=== PATIENT | male | born 1950 | race Caucasian/White ===

== ENCOUNTER 2022-10-09 04:31 | Inpatient (IN) ==
[2022-10-09] MEDS ORDERED: DILTIAZEM 25 MG/5 ML VIAL IV ONE (05:00)
[2022-10-09] MEDS ORDERED: ALBUTEROL/IPRATROPIUM 3 ML NEB RESP TX STA (05:01)
[2022-10-09] MEDS ORDERED: DILTIAZEM 50 MG/10 ML VIAL IV STA (05:01)
[2022-10-09] MEDS ORDERED: ONDANSETRON 4 MG/2 ML VIAL IV STA (05:01)
[2022-10-09] MEDS ORDERED: methylPREDNISolone SOD SUC 125 MG/2 ML VIAL IV STA (05:01)
[2022-10-09 05:21] LABS: Arterial Base Excess iSTAT -3 MMOL/L (-2.5-2.5); Arterial Bicarbonate iSTAT 21.6 MMOL/L (20-26); Arterial O2 Saturation iSTAT 83 % (95-100); Arterial PCO2 iSTAT 35 MM HG (35-48); Arterial PO2 iSTAT 47 MM HG (80-95); Arterial Total CO2 iSTAT 23 MMO/L (23-27)
[2022-10-09 05:41] LABS: Basophils # 0.1 10*3/uL (0.0-0.2); Basophils % 0.3 % (0.0-0.8); Eosinophils % 0.1 % (0.00-10.9); Hemoglobin 12.9 GM/DL (14.0-18.0); Immature Granulocytes % 0.6 %; Immature Granulocytes Absolute 0.09 #; Lymphocytes # 0.4 10*3/uL (1.4-4.0); Lymphocytes % 2.8 % (21.2-54.2); Mean Corpuscular HGB Conc 31.5 GM/DL (32-36); Mean Corpuscular Volume 92.6 FL (87-102); Monocytes % 6.4 % (1.7-12.7); NRBC # 0.02 10*3/uL; Neutrophils % 89.8 % (38.7-73.9); Platelet Count 236 T/CUMM (130-400); Red Blood Count 4.43 MC/CUMM (3.8-5.5); Red Cell Distribution Width 18.6 % (9.3-17.3); White Blood Count 15.51 T/CUMM (4-12)
[2022-10-09] MEDS ORDERED: PIPERACILLIN/TAZOBACTAM 3,375 MG in SODIUM CHLORIDE 0.9% 100 ML IV STA (05:46)
[2022-10-09 05:50] LABS: INR 2.5; PT Patient Result 25.7 SECS (10.1-12.1)
[2022-10-09 05:59] LABS: Albumin 3.3 G/DL (3.4-5.0); Bilirubin,Total 1.2 MG/DL (0.20-1.00); Calcium 8.6 MG/DL (8.5-10.1); Osmolality,Calculated 289.8 MOS/KG (273-304); Potassium 4.8 MMOL/L (3.5-5.1)
[2022-10-09] MEDS ORDERED: ACETAMINOPHEN 325 MG TABLET PO PRN (06:00)
[2022-10-09] MEDS ORDERED: DEXTROSE 50% 25 GM/50 ML VIAL IV PRN (06:00)
[2022-10-09] MEDS ORDERED: GLUCAGON 1 MG VIAL IM PRN (06:00)
[2022-10-09 06:12] LABS: Band Neutrophils 6 % (0-10); Lymphocytes 2 % (20-55); Total Cells Counted 100
[2022-10-09 06:13] LABS: Anisocytosis 1+; Microcytosis 1+; Ovalocytes Slight
[2022-10-09 06:14] LABS: Arterial Base Excess iSTAT -2 MMOL/L (-2.5-2.5); Arterial Bicarbonate iSTAT 21.7 MMOL/L (20-26); Arterial O2 Saturation iSTAT 96 % (95-100); Arterial PCO2 iSTAT 35 MM HG (35-48); Arterial PO2 iSTAT 81 MM HG (80-95); Arterial Total CO2 iSTAT 23 MMO/L (23-27); Arterial pH iSTAT 7.406 (7.35-7.45)
[2022-10-09 06:14] LABS: Platelet Estimate Normal
[2022-10-09] MEDS ORDERED: DEXTROSE 10% 250 ML BAG IV PRN (06:30)
[2022-10-09] MEDS: ALBUTEROL/IPRATROPIUM 3 ML NEB RESP TX SCH ×3 (07:15→22:16)
[2022-10-09] MEDS: INSULIN REGULAR 100 UNIT/ML SUBCUT SCH ×4 (08:17→22:34)
[2022-10-09] MEDS: AZITHROMYCIN INJ 500 MG in SODIUM CHLORIDE 0.9% 250 ML IV SCH (08:29)
[2022-10-09] MEDS ORDERED: ALBUTEROL 1.25 MG/3 ML NEB RESP TX ONE (11:06)
[2022-10-09] MEDS: PANTOPRAZOLE 40 MG TABLET PO SCH (11:12)
[2022-10-09] MEDS ORDERED: ALBUTEROL 2.5 MG/3 ML NEB RESP TX PRN (15:00)
[2022-10-09] MEDS: FUROSEMIDE 40 MG/4 ML VIAL IV SCH ×2 (16:34→16:48)
[2022-10-09] MEDS: methylPREDNISolone SOD SUC 40 MG/1 ML VIAL IV SCH (22:30)
[2022-10-09] MEDS: ASCORBIC ACID 500 MG TABLET PO SCH (22:34)
[2022-10-09] MEDS: SPIRONOLACTONE 25 MG TABLET PO SCH (22:34)
[2022-10-09] MEDS: FLECAINIDE 50 MG TABLET PO SCH (22:35)
[2022-10-10] MEDS: ALBUTEROL/IPRATROPIUM 3 ML NEB RESP TX SCH ×4 (01:16→21:06)
[2022-10-10 04:34] LABS: Basophils % 0.1 % (0.0-0.8); Hematocrit 40.8 VOL% (42.0-52.0); Hemoglobin 13.1 GM/DL (14.0-18.0); Immature Granulocytes % 0.6 %; Immature Granulocytes Absolute 0.07 #; Lymphocytes # 0.6 10*3/uL (1.4-4.0); Lymphocytes % 4.6 % (21.2-54.2); Mean Corpuscular HGB Conc 32.1 GM/DL (32-36); Mean Corpuscular Volume 93.6 FL (87-102); Mean Platelet Volume 11.3 FL (9.6-12.0); Monocytes # 0.5 10*3/uL (0.11-0.8); Monocytes % 3.9 % (1.7-12.7); NRBC # 0.02 10*3/uL; Neutrophils % 90.8 % (38.7-73.9); Platelet Count 219 T/CUMM (130-400); Red Blood Count 4.36 MC/CUMM (3.8-5.5); Red Cell Distribution Width 18.7 % (9.3-17.3); White Blood Count 12.25 T/CUMM (4-12)
[2022-10-10 05:00] LABS: Lymphocytes 3 % (20-55); Platelet Estimate Adequate; Total Cells Counted 100
[2022-10-10 05:01] LABS: Ovalocytes Slight
[2022-10-10 05:02] LABS: Calcium 9.1 MG/DL (8.5-10.1); Osmolality,Calculated 293.4 MOS/KG (273-304); Potassium 4.9 MMOL/L (3.5-5.1)
[2022-10-10 05:06] LABS: Bilirubin,Total 0.8 MG/DL (0.20-1.00); Calcium 9.2 MG/DL (8.5-10.1); Osmolality,Calculated 292.4 MOS/KG (273-304); Potassium 4.8 MMOL/L (3.5-5.1); Total Protein 7.3 G/DL (6.4-8.2)
[2022-10-10] MEDS: cefTRIAXone 1,000 MG in SODIUM CHLORIDE 0.9% 100 ML IV SCH (05:09)
[2022-10-10] MEDS: methylPREDNISolone SOD SUC 40 MG/1 ML VIAL IV SCH ×3 (05:53→21:47)
[2022-10-10] MEDS: AZITHROMYCIN INJ 500 MG in SODIUM CHLORIDE 0.9% 250 ML IV SCH (06:34)
[2022-10-10] MEDS: ATORVASTATIN 80 MG TABLET PO SCH (09:24)
[2022-10-10] MEDS: SPIRONOLACTONE 25 MG TABLET PO SCH ×2 (09:24→21:45)
[2022-10-10] MEDS: DAPAGLIFLOZIN 10 MG TABLET PO SCH (09:24)
[2022-10-10] MEDS: FLECAINIDE 50 MG TABLET PO SCH ×2 (09:24→21:44)
[2022-10-10] MEDS: ASPIRIN EC 81 MG TABLET PO SCH (09:25)
[2022-10-10] MEDS: FUROSEMIDE 40 MG/4 ML VIAL IV SCH ×2 (09:25→16:46)
[2022-10-10] MEDS: ASCORBIC ACID 500 MG TABLET PO SCH ×2 (09:25→21:45)
[2022-10-10] MEDS: INSULIN REGULAR 100 UNIT/ML SUBCUT SCH ×4 (09:26→21:48)
[2022-10-10] MEDS: PANTOPRAZOLE 40 MG TABLET PO SCH (09:30)
[2022-10-10] MEDS: NON-FORMULARY MEDICATION (Budesonide-Glycopyr-Formoterol [Breztri Aerosphere] 160-9-4.8 mc INH SCH (10:07)
[2022-10-10] MEDS: OXYMETAZOLINE 0.05% NASAL SPRAY 15 ML BOTTLE BOTH NARES SCH ×2 (13:21→21:45)
[2022-10-10 14:10] LABS: % Iron Saturation 21.2 % (18-50)
[2022-10-10 14:35] LABS: 25 Hydroxy Vitamin D Total 20.6 NG/ML (30-100); Folate 7.32 NG/ML (5.38-24.0)
[2022-10-10] MEDS ORDERED: DIGOXIN 0.25 MG TABLET PO SCH (21:00)
[2022-10-10] MEDS: DOXYCYCLINE HYCLATE 100 MG CAPSULE PO SCH (21:45)
[2022-10-11] MEDS: cefTRIAXone 1,000 MG in SODIUM CHLORIDE 0.9% 100 ML IV SCH (03:03)
[2022-10-11] MEDS: ALBUTEROL/IPRATROPIUM 3 ML NEB RESP TX SCH ×4 (03:03→19:58)
[2022-10-11] MEDS: methylPREDNISolone SOD SUC 40 MG/1 ML VIAL IV SCH ×2 (04:01→16:09)
[2022-10-11 05:22] LABS: Basophils % 0.1 % (0.0-0.8); Hematocrit 41.8 VOL% (42.0-52.0); Hemoglobin 12.9 GM/DL (14.0-18.0); Immature Granulocytes % 0.9 %; Immature Granulocytes Absolute 0.14 #; Lymphocytes # 0.5 10*3/uL (1.4-4.0); Lymphocytes % 3.2 % (21.2-54.2); Mean Corpuscular HGB Conc 30.9 GM/DL (32-36); Mean Corpuscular Volume 94.8 FL (87-102); Mean Platelet Volume 11.2 FL (9.6-12.0); Monocytes # 0.6 10*3/uL (0.11-0.8); NRBC # 0.03 10*3/uL; Neutrophils % 91.8 % (38.7-73.9); Platelet Count 261 T/CUMM (130-400); Red Blood Count 4.41 MC/CUMM (3.8-5.5); Red Cell Distribution Width 19.3 % (9.3-17.3); White Blood Count 15.16 T/CUMM (4-12)
[2022-10-11 05:42] LABS: Lymphocytes 4 % (20-55); Platelet Estimate Adequate; Total Cells Counted 100
[2022-10-11 05:43] LABS: Calcium 9.4 MG/DL (8.5-10.1); Osmolality,Calculated 298.2 MOS/KG (273-304); Potassium 4.6 MMOL/L (3.5-5.1)
[2022-10-11 05:45] LABS: Risk Ratio 3.39; VLDL Cholesterol 16.6 MG/DL
[2022-10-11] MEDS: SPIRONOLACTONE 25 MG TABLET PO SCH ×2 (09:14→21:24)
[2022-10-11] MEDS: DAPAGLIFLOZIN 10 MG TABLET PO SCH (09:14)
[2022-10-11] MEDS: RIVAROXABAN 20 MG TABLET PO SCH (09:14)
[2022-10-11] MEDS: PANTOPRAZOLE 40 MG TABLET PO SCH (09:14)
[2022-10-11] MEDS: FLECAINIDE 50 MG TABLET PO SCH ×2 (09:14→21:23)
[2022-10-11] MEDS: ASCORBIC ACID 500 MG TABLET PO SCH ×2 (09:14→21:23)
[2022-10-11] MEDS: ASPIRIN EC 81 MG TABLET PO SCH (09:14)
[2022-10-11] MEDS: DOXYCYCLINE HYCLATE 100 MG CAPSULE PO SCH ×2 (09:14→21:24)
[2022-10-11] MEDS: ATORVASTATIN 80 MG TABLET PO SCH (09:14)
[2022-10-11] MEDS: INSULIN REGULAR 100 UNIT/ML SUBCUT SCH ×4 (09:15→21:23)
[2022-10-11] MEDS: FUROSEMIDE 40 MG/4 ML VIAL IV SCH (09:15)
[2022-10-11] MEDS: OXYMETAZOLINE 0.05% NASAL SPRAY 15 ML BOTTLE BOTH NARES SCH ×2 (09:17→21:25)
[2022-10-11] MEDS: NON-FORMULARY MEDICATION (Budesonide-Glycopyr-Formoterol [Breztri Aerosphere] 160-9-4.8 mc INH SCH (09:22)
[2022-10-11] MEDS: FUROSEMIDE 40 MG TABLET PO SCH (16:09)
[2022-10-11] MEDS ORDERED: glipiZIDE 5 MG TABLET PO SCH (17:00)
[2022-10-12] MEDS: ALBUTEROL/IPRATROPIUM 3 ML NEB RESP TX SCH ×4 (02:31→19:16)
[2022-10-12] MEDS: cefTRIAXone 1,000 MG in SODIUM CHLORIDE 0.9% 100 ML IV SCH (03:42)
[2022-10-12] MEDS: methylPREDNISolone SOD SUC 40 MG/1 ML VIAL IV SCH (03:43)
[2022-10-12 05:54] LABS: Basophils % 0.1 % (0.0-0.8); Hematocrit 44.1 VOL% (42.0-52.0); Hemoglobin 13.7 GM/DL (14.0-18.0); Immature Granulocytes % 1.2 %; Immature Granulocytes Absolute 0.18 #; Lymphocytes # 0.4 10*3/uL (1.4-4.0); Lymphocytes % 2.8 % (21.2-54.2); Mean Corpuscular HGB Conc 31.1 GM/DL (32-36); Mean Corpuscular Volume 96.1 FL (87-102); Mean Platelet Volume 11.2 FL (9.6-12.0); Monocytes # 1.2 10*3/uL (0.11-0.8); Monocytes % 7.6 % (1.7-12.7); NRBC # 0.14 10*3/uL; Neutrophils % 88.3 % (38.7-73.9); Platelet Count 271 T/CUMM (130-400); Red Blood Count 4.59 MC/CUMM (3.8-5.5); Red Cell Distribution Width 19.7 % (9.3-17.3); White Blood Count 15.09 T/CUMM (4-12)
[2022-10-12 06:09] LABS: Calcium 9.1 MG/DL (8.5-10.1); Osmolality,Calculated 299.2 MOS/KG (273-304); Potassium 4.6 MMOL/L (3.5-5.1)
[2022-10-12 06:13] LABS: Lymphocytes 2 % (20-55); Platelet Estimate Adequate; Total Cells Counted 100
[2022-10-12] MEDS: FLECAINIDE 50 MG TABLET PO SCH ×2 (08:35→21:11)
[2022-10-12] MEDS: ASCORBIC ACID 500 MG TABLET PO SCH ×2 (08:35→21:11)
[2022-10-12] MEDS: PANTOPRAZOLE 40 MG TABLET PO SCH (08:35)
[2022-10-12] MEDS: ATORVASTATIN 80 MG TABLET PO SCH (08:36)
[2022-10-12] MEDS: SPIRONOLACTONE 25 MG TABLET PO SCH (08:36)
[2022-10-12] MEDS: MAGNESIUM OXIDE 400 MG TABLET PO SCH (08:36)
[2022-10-12] MEDS: FERROUS SULFATE 325 MG TABLET PO SCH (08:36)
[2022-10-12] MEDS: FUROSEMIDE 40 MG TABLET PO SCH (08:36)
[2022-10-12] MEDS: ASPIRIN EC 81 MG TABLET PO SCH (08:36)
[2022-10-12] MEDS: DAPAGLIFLOZIN 10 MG TABLET PO SCH (08:36)
[2022-10-12] MEDS: INSULIN REGULAR 100 UNIT/ML SUBCUT SCH ×4 (08:36→21:11)
[2022-10-12] MEDS: DOXYCYCLINE HYCLATE 100 MG CAPSULE PO SCH ×2 (08:36→21:10)
[2022-10-12] MEDS: NON-FORMULARY MEDICATION (Budesonide-Glycopyr-Formoterol [Breztri Aerosphere] 160-9-4.8 mc INH SCH (08:37)
[2022-10-12] MEDS: TERBINAFINE 250 MG TABLET PO SCH (08:37)
[2022-10-12] MEDS: RIVAROXABAN 20 MG TABLET PO SCH (08:40)
[2022-10-12] MEDS: OXYMETAZOLINE 0.05% NASAL SPRAY 15 ML BOTTLE BOTH NARES SCH ×2 (08:46→21:14)
[2022-10-12] MEDS ORDERED: TEMAZEPAM 15 MG CAPSULE PO PRN (09:20)
[2022-10-12] MEDS ORDERED: SODIUM CHLORIDE 0.9% 1,000 ML IV SCH (12:00)
[2022-10-12] MEDS: CHOLECALCIFEROL 5,000 UNIT TABLET PO SCH (14:21)
[2022-10-12] MEDS: glipiZIDE 5 MG TABLET PO SCH (21:11)
[2022-10-13] MEDS: ALBUTEROL/IPRATROPIUM 3 ML NEB RESP TX SCH ×4 (01:05→19:08)
[2022-10-13] MEDS: cefTRIAXone 1,000 MG in SODIUM CHLORIDE 0.9% 100 ML IV SCH (03:53)
[2022-10-13 04:54] LABS: Basophils # 0.1 10*3/uL (0.0-0.2); Basophils % 0.4 % (0.0-0.8); Eosinophils % 0.1 % (0.00-10.9); Hematocrit 41.3 VOL% (42.0-52.0); Hemoglobin 13.4 GM/DL (14.0-18.0); Immature Granulocytes % 1.7 %; Immature Granulocytes Absolute 0.23 #; Lymphocytes # 0.9 10*3/uL (1.4-4.0); Lymphocytes % 6.8 % (21.2-54.2); Mean Corpuscular HGB Conc 32.4 GM/DL (32-36); Mean Corpuscular Volume 92.4 FL (87-102); Mean Platelet Volume 11.6 FL (9.6-12.0); Monocytes # 1.6 10*3/uL (0.11-0.8); Monocytes % 11.7 % (1.7-12.7); NRBC # 0.25 10*3/uL; Neutrophils % 79.3 % (38.7-73.9); Platelet Count 222 T/CUMM (130-400); Red Blood Count 4.47 MC/CUMM (3.8-5.5); Red Cell Distribution Width 19.7 % (9.3-17.3); White Blood Count 13.27 T/CUMM (4-12)
[2022-10-13 05:12] LABS: Osmolality,Calculated 286.7 MOS/KG (273-304); Potassium 4.2 MMOL/L (3.5-5.1)
[2022-10-13] MEDS: ONDANSETRON 4 MG/2 ML VIAL IV PRN (05:15)
[2022-10-13] MEDS: NON-FORMULARY MEDICATION (Budesonide-Glycopyr-Formoterol [Breztri Aerosphere] 160-9-4.8 mc INH SCH (09:11)
[2022-10-13] MEDS: OXYMETAZOLINE 0.05% NASAL SPRAY 15 ML BOTTLE BOTH NARES SCH (09:11)
[2022-10-13] MEDS: methylPREDNISolone SOD SUC 40 MG/1 ML VIAL IV SCH (09:12)
[2022-10-13] MEDS: ASPIRIN EC 81 MG TABLET PO SCH (09:12)
[2022-10-13] MEDS: TERBINAFINE 250 MG TABLET PO SCH (09:12)
[2022-10-13] MEDS: DAPAGLIFLOZIN 10 MG TABLET PO SCH (09:12)
[2022-10-13] MEDS: glipiZIDE 5 MG TABLET PO SCH ×2 (09:12→20:34)
[2022-10-13] MEDS: CHOLECALCIFEROL 5,000 UNIT TABLET PO SCH (09:12)
[2022-10-13] MEDS: PANTOPRAZOLE 40 MG TABLET PO SCH (09:12)
[2022-10-13] MEDS: FERROUS SULFATE 325 MG TABLET PO SCH (09:12)
[2022-10-13] MEDS: ATORVASTATIN 80 MG TABLET PO SCH (09:12)
[2022-10-13] MEDS: FLECAINIDE 50 MG TABLET PO SCH ×2 (09:13→20:34)
[2022-10-13] MEDS: ASCORBIC ACID 500 MG TABLET PO SCH ×2 (09:13→20:34)
[2022-10-13] MEDS: DOXYCYCLINE HYCLATE 100 MG CAPSULE PO SCH ×2 (09:13→20:35)
[2022-10-13] MEDS: RIVAROXABAN 20 MG TABLET PO SCH (09:13)
[2022-10-13] MEDS: MAGNESIUM OXIDE 400 MG TABLET PO SCH (09:16)
[2022-10-13] MEDS: INSULIN REGULAR 100 UNIT/ML SUBCUT SCH ×4 (09:18→20:35)
[2022-10-13] MEDS ORDERED: ALBUTEROL/IPRATROPIUM 3 ML NEB RESP TX PRN (10:23)
[2022-10-13] MEDS: DOBUTamine 500 MG/250 ML PREMIX IV SCH (12:23)
[2022-10-13] MEDS: ALPRAZolam 0.5 MG TABLET PO SCH ×2 (12:32→20:34)
[2022-10-13] MEDS ORDERED: ALBUTEROL/IPRATROPIUM 3 ML NEB RESP TX ONE (12:38)
[2022-10-13] MEDS: POLYETHYLENE GLYCOL POWDER 17 GM PACK PO SCH (17:28)
[2022-10-14] MEDS: ALBUTEROL/IPRATROPIUM 3 ML NEB RESP TX SCH ×4 (01:16→19:30)
[2022-10-14] MEDS: cefTRIAXone 1,000 MG in SODIUM CHLORIDE 0.9% 100 ML IV SCH (03:08)
[2022-10-14 04:59] LABS: Basophils % 0.2 % (0.0-0.8); Hematocrit 40.9 VOL% (42.0-52.0); Hemoglobin 13.1 GM/DL (14.0-18.0); Immature Granulocytes % 1.5 %; Immature Granulocytes Absolute 0.17 #; Lymphocytes # 0.9 10*3/uL (1.4-4.0); Lymphocytes % 7.4 % (21.2-54.2); Mean Platelet Volume 11.7 FL (9.6-12.0); Monocytes % 8.9 % (1.7-12.7); NRBC # 0.21 10*3/uL; Platelet Count 189 T/CUMM (130-400); Red Cell Distribution Width 19.7 % (9.3-17.3)
[2022-10-14 05:23] LABS: Calcium 9.1 MG/DL (8.5-10.1); Osmolality,Calculated 290.2 MOS/KG (273-304); Potassium 4.4 MMOL/L (3.5-5.1)
[2022-10-14] MEDS: INSULIN REGULAR 100 UNIT/ML SUBCUT SCH ×4 (07:39→20:42)
[2022-10-14] MEDS: FLECAINIDE 50 MG TABLET PO SCH ×2 (10:25→20:42)
[2022-10-14] MEDS: glipiZIDE 5 MG TABLET PO SCH ×2 (10:26→20:42)
[2022-10-14] MEDS: PANTOPRAZOLE 40 MG TABLET PO SCH (10:26)
[2022-10-14] MEDS: CHOLECALCIFEROL 5,000 UNIT TABLET PO SCH (10:27)
[2022-10-14] MEDS: FERROUS SULFATE 325 MG TABLET PO SCH (10:27)
[2022-10-14] MEDS: DAPAGLIFLOZIN 10 MG TABLET PO SCH (10:27)
[2022-10-14] MEDS: ALPRAZolam 0.5 MG TABLET PO SCH ×2 (10:27→20:42)
[2022-10-14] MEDS: RIVAROXABAN 20 MG TABLET PO SCH (10:27)
[2022-10-14] MEDS: POLYETHYLENE GLYCOL POWDER 17 GM PACK PO SCH (10:28)
[2022-10-14] MEDS: ASPIRIN EC 81 MG TABLET PO SCH (10:28)
[2022-10-14] MEDS: ATORVASTATIN 80 MG TABLET PO SCH (10:28)
[2022-10-14] MEDS: ASCORBIC ACID 500 MG TABLET PO SCH ×2 (10:28→20:42)
[2022-10-14] MEDS: DOXYCYCLINE HYCLATE 100 MG CAPSULE PO SCH ×2 (10:28→20:42)
[2022-10-14] MEDS: NON-FORMULARY MEDICATION (Budesonide-Glycopyr-Formoterol [Breztri Aerosphere] 160-9-4.8 mc INH SCH (10:29)
[2022-10-14] MEDS: TERBINAFINE 250 MG TABLET PO SCH (10:29)
[2022-10-14] MEDS: MAGNESIUM OXIDE 400 MG TABLET PO SCH (10:29)
[2022-10-14] MEDS: methylPREDNISolone SOD SUC 40 MG/1 ML VIAL IV SCH (11:15)
[2022-10-14] MEDS: DOBUTamine 500 MG/250 ML PREMIX IV SCH (17:02)
[2022-10-15] MEDS: ALBUTEROL/IPRATROPIUM 3 ML NEB RESP TX SCH ×4 (00:45→19:18)
[2022-10-15] MEDS: cefTRIAXone 1,000 MG in SODIUM CHLORIDE 0.9% 100 ML IV SCH (04:06)
[2022-10-15 04:23] LABS: Basophils % 0.2 % (0.0-0.8); Eosinophils % 0.1 % (0.00-10.9); Hematocrit 50.2 VOL% (42.0-52.0); Hemoglobin 15.6 GM/DL (14.0-18.0); Immature Granulocytes % 1.2 %; Lymphocytes # 0.5 10*3/uL (1.4-4.0); Lymphocytes % 5.4 % (21.2-54.2); Mean Corpuscular HGB Conc 31.1 GM/DL (32-36); Mean Corpuscular Volume 97.5 FL (87-102); Mean Platelet Volume 11.3 FL (9.6-12.0); Monocytes # 0.8 10*3/uL (0.11-0.8); Monocytes % 8.8 % (1.7-12.7); NRBC # 0.17 10*3/uL; Neutrophils % 84.3 % (38.7-73.9); Platelet Count 109 T/CUMM (130-400); Red Blood Count 5.15 MC/CUMM (3.8-5.5); Red Cell Distribution Width 20.6 % (9.3-17.3); White Blood Count 8.53 T/CUMM (4-12)
[2022-10-15 04:33] LABS: Albumin 3.1 G/DL (3.4-5.0); Bilirubin,Total 0.9 MG/DL (0.20-1.00); Calcium 9.1 MG/DL (8.5-10.1); Osmolality,Calculated 286.4 MOS/KG (273-304); Potassium 4.4 MMOL/L (3.5-5.1); Total Protein 6.7 G/DL (6.4-8.2)
[2022-10-15 04:37] LABS: Calcium 9.1 MG/DL (8.5-10.1); Osmolality,Calculated 286.4 MOS/KG (273-304); Potassium 4.6 MMOL/L (3.5-5.1)
[2022-10-15] MEDS: DOXYCYCLINE HYCLATE 100 MG CAPSULE PO SCH ×2 (08:56→21:35)
[2022-10-15] MEDS: CHOLECALCIFEROL 5,000 UNIT TABLET PO SCH (08:56)
[2022-10-15] MEDS: ATORVASTATIN 80 MG TABLET PO SCH (08:56)
[2022-10-15] MEDS: FLECAINIDE 50 MG TABLET PO SCH ×2 (08:56→21:34)
[2022-10-15] MEDS: ALPRAZolam 0.5 MG TABLET PO SCH ×2 (08:56→21:35)
[2022-10-15] MEDS: glipiZIDE 5 MG TABLET PO SCH ×2 (08:56→21:34)
[2022-10-15] MEDS: ASCORBIC ACID 500 MG TABLET PO SCH ×2 (08:57→21:34)
[2022-10-15] MEDS: ASPIRIN EC 81 MG TABLET PO SCH (08:57)
[2022-10-15] MEDS: PANTOPRAZOLE 40 MG TABLET PO SCH (08:57)
[2022-10-15] MEDS: DAPAGLIFLOZIN 10 MG TABLET PO SCH (08:57)
[2022-10-15] MEDS: RIVAROXABAN 20 MG TABLET PO SCH (08:57)
[2022-10-15] MEDS: FERROUS SULFATE 325 MG TABLET PO SCH (08:57)
[2022-10-15] MEDS: TERBINAFINE 250 MG TABLET PO SCH (08:58)
[2022-10-15] MEDS: POLYETHYLENE GLYCOL POWDER 17 GM PACK PO SCH (08:58)
[2022-10-15] MEDS: INSULIN REGULAR 100 UNIT/ML SUBCUT SCH ×4 (09:25→21:37)
[2022-10-15] MEDS: methylPREDNISolone SOD SUC 40 MG/1 ML VIAL IV SCH (10:55)
[2022-10-15] MEDS ORDERED: FUROSEMIDE 40 MG/4 ML VIAL IV ONE (11:01)
[2022-10-15] MEDS: MAGNESIUM OXIDE 400 MG TABLET PO SCH (11:10)
[2022-10-15] MEDS: NON-FORMULARY MEDICATION (Budesonide-Glycopyr-Formoterol [Breztri Aerosphere] 160-9-4.8 mc INH SCH (11:11)
[2022-10-15 12:11] LABS: Hepatitis B Core IgM Quant 0.06 Index; Hepatitis B Surface Ag Quant < 0.10 Index; Hepatitis B Surface Ag Result Non-Reactive (NonReactive); Hepatitis C Virus Ab Quant < 0.02 Index; Hepatitis C Virus Ab Result Non-Reactive (NonReactive)
[2022-10-16] MEDS: DOBUTamine 500 MG/250 ML PREMIX IV SCH ×3 (00:03→21:23)
[2022-10-16] MEDS: ALBUTEROL/IPRATROPIUM 3 ML NEB RESP TX SCH ×4 (00:15→19:27)
[2022-10-16 04:35] LABS: Basophils % 0.1 % (0.0-0.8); Eosinophils % 0.1 % (0.00-10.9); Hematocrit 41.4 VOL% (42.0-52.0); Immature Granulocytes % 1.4 %; Immature Granulocytes Absolute 0.19 #; Lymphocytes # 0.6 10*3/uL (1.4-4.0); Lymphocytes % 4.6 % (21.2-54.2); Mean Corpuscular HGB Conc 31.4 GM/DL (32-36); Mean Corpuscular Volume 94.5 FL (87-102); Mean Platelet Volume 11.5 FL (9.6-12.0); Monocytes # 1.7 10*3/uL (0.11-0.8); Monocytes % 12.4 % (1.7-12.7); NRBC # 0.17 10*3/uL; Neutrophils % 81.4 % (38.7-73.9); Platelet Count 166 T/CUMM (130-400); Red Blood Count 4.38 MC/CUMM (3.8-5.5); Red Cell Distribution Width 20.3 % (9.3-17.3); White Blood Count 13.64 T/CUMM (4-12)
[2022-10-16 04:55] LABS: Lymphocytes 4 % (20-55); Nucleated Red Blood Cells 1 /100 WBC (0-5); Total Cells Counted 100
[2022-10-16 04:56] LABS: Anisocytosis 1+; Ovalocytes Few; Platelet Estimate Adequate; Polychromasia Slight
[2022-10-16 05:05] LABS: Albumin 3.1 G/DL (3.4-5.0); Bilirubin,Total 0.9 MG/DL (0.20-1.00); Calcium 8.9 MG/DL (8.5-10.1); Osmolality,Calculated 288.4 MOS/KG (273-304); Potassium 4.4 MMOL/L (3.5-5.1); Total Protein 6.8 G/DL (6.4-8.2)
[2022-10-16] MEDS: cefTRIAXone 1,000 MG in SODIUM CHLORIDE 0.9% 100 ML IV SCH (05:34)
[2022-10-16] MEDS ORDERED: FUROSEMIDE 40 MG/4 ML VIAL IV ONE ×2 (08:36→16:00)
[2022-10-16] MEDS: predniSONE 20 MG TABLET PO SCH (10:13)
[2022-10-16] MEDS: DOXYCYCLINE HYCLATE 100 MG CAPSULE PO SCH ×2 (10:13→21:24)
[2022-10-16] MEDS: FERROUS SULFATE 325 MG TABLET PO SCH (10:13)
[2022-10-16] MEDS: ASCORBIC ACID 500 MG TABLET PO SCH ×2 (10:13→21:23)
[2022-10-16] MEDS: DAPAGLIFLOZIN 10 MG TABLET PO SCH (10:13)
[2022-10-16] MEDS: MAGNESIUM OXIDE 400 MG TABLET PO SCH (10:14)
[2022-10-16] MEDS: glipiZIDE 5 MG TABLET PO SCH ×2 (10:14→21:23)
[2022-10-16] MEDS: FLECAINIDE 50 MG TABLET PO SCH ×2 (10:14→21:24)
[2022-10-16] MEDS: TERBINAFINE 250 MG TABLET PO SCH (10:14)
[2022-10-16] MEDS: ALPRAZolam 0.5 MG TABLET PO SCH ×2 (10:15→21:24)
[2022-10-16] MEDS: PANTOPRAZOLE 40 MG TABLET PO SCH (10:15)
[2022-10-16] MEDS: ASPIRIN EC 81 MG TABLET PO SCH (10:15)
[2022-10-16] MEDS: CHOLECALCIFEROL 5,000 UNIT TABLET PO SCH (10:15)
[2022-10-16] MEDS: INSULIN REGULAR 100 UNIT/ML SUBCUT SCH ×4 (10:15→21:23)
[2022-10-16] MEDS: NON-FORMULARY MEDICATION (Budesonide-Glycopyr-Formoterol [Breztri Aerosphere] 160-9-4.8 mc INH SCH (10:15)
[2022-10-16] MEDS: POLYETHYLENE GLYCOL POWDER 17 GM PACK PO SCH (10:26)
[2022-10-16] MEDS ORDERED: LACTULOSE 20 GM/30 ML UDCUP PO ONE (13:01)
[2022-10-16] MEDS ORDERED: LACTULOSE 20 GM/30 ML UDCUP PO PRN (13:01)
[2022-10-16] MEDS ORDERED: RIVAROXABAN 20 MG TABLET PO ONE (13:35)
[2022-10-17] MEDS: ALBUTEROL/IPRATROPIUM 3 ML NEB RESP TX SCH ×4 (00:30→18:53)
[2022-10-17] MEDS: cefTRIAXone 1,000 MG in SODIUM CHLORIDE 0.9% 100 ML IV SCH (03:45)
[2022-10-17 05:11] LABS: Basophils % 0.1 % (0.0-0.8); Eosinophils # 0.1 10*3/uL (0.0-0.87); Hemoglobin 13.1 GM/DL (14.0-18.0); Immature Granulocytes % 1.6 %; Immature Granulocytes Absolute 0.16 #; Lymphocytes # 0.8 10*3/uL (1.4-4.0); Lymphocytes % 7.9 % (21.2-54.2); Mean Corpuscular HGB Conc 31.2 GM/DL (32-36); Mean Corpuscular Volume 95.2 FL (87-102); Mean Platelet Volume 11.7 FL (9.6-12.0); Monocytes # 1.2 10*3/uL (0.11-0.8); Monocytes % 12.2 % (1.7-12.7); NRBC # 0.12 10*3/uL; Neutrophils % 77.2 % (38.7-73.9); Platelet Count 154 T/CUMM (130-400); Red Blood Count 4.41 MC/CUMM (3.8-5.5); Red Cell Distribution Width 20.6 % (9.3-17.3); White Blood Count 10.17 T/CUMM (4-12)
[2022-10-17 05:29] LABS: Albumin 3.1 G/DL (3.4-5.0); Bilirubin,Total 0.9 MG/DL (0.20-1.00); Osmolality,Calculated 286.4 MOS/KG (273-304); Potassium 4.2 MMOL/L (3.5-5.1); Total Protein 6.6 G/DL (6.4-8.2)
[2022-10-17 05:30] LABS: Calcium 8.9 MG/DL (8.5-10.1); Osmolality,Calculated 290.2 MOS/KG (273-304); Potassium 4.2 MMOL/L (3.5-5.1)
[2022-10-17] MEDS ORDERED: SODIUM CHLORIDE 0.9% 1,000 ML IV SCH (06:00)
[2022-10-17] MEDS ORDERED: MEPERIDINE 50 MG/1 ML VIAL IM ONE (07:00)
[2022-10-17] MEDS ORDERED: PROMETHAZINE 25 MG/1 ML VIAL IM ONE (07:00)
[2022-10-17] MEDS ORDERED: LIDOCAINE 2% VISCOUS 100 ML BOTTLE SWISH/SPIT ONE (07:30)
[2022-10-17] MEDS ORDERED: MIDAZOLAM 2 MG/2 ML VIAL IV ONE (07:30)
[2022-10-17] MEDS ORDERED: LIDOCAINE 2% 20 ML VIAL RESP TX ONE (07:30)
[2022-10-17] MEDS ORDERED: LIDOCAINE 1% 20 ML VIAL MISC INJ ONE (07:30)
[2022-10-17] MEDS: INSULIN REGULAR 100 UNIT/ML SUBCUT SCH ×4 (07:56→21:01)
[2022-10-17] MEDS: ALPRAZolam 0.5 MG TABLET PO SCH ×2 (10:31→21:02)
[2022-10-17] MEDS: RIVAROXABAN 20 MG TABLET PO SCH (10:31)
[2022-10-17] MEDS: DOXYCYCLINE HYCLATE 100 MG CAPSULE PO SCH ×2 (10:32→21:02)
[2022-10-17] MEDS: TERBINAFINE 250 MG TABLET PO SCH (10:32)
[2022-10-17] MEDS: FLECAINIDE 50 MG TABLET PO SCH ×2 (10:33→21:01)
[2022-10-17] MEDS: FERROUS SULFATE 325 MG TABLET PO SCH (10:34)
[2022-10-17] MEDS: DAPAGLIFLOZIN 10 MG TABLET PO SCH (10:34)
[2022-10-17] MEDS: glipiZIDE 5 MG TABLET PO SCH ×2 (10:34→21:02)
[2022-10-17] MEDS: PANTOPRAZOLE 40 MG TABLET PO SCH (10:34)
[2022-10-17] MEDS: ASPIRIN EC 81 MG TABLET PO SCH (10:35)
[2022-10-17] MEDS: predniSONE 20 MG TABLET PO SCH (10:35)
[2022-10-17] MEDS: ASCORBIC ACID 500 MG TABLET PO SCH ×2 (10:35→21:02)
[2022-10-17] MEDS: POLYETHYLENE GLYCOL POWDER 17 GM PACK PO SCH (10:35)
[2022-10-17] MEDS: CHOLECALCIFEROL 5,000 UNIT TABLET PO SCH (10:36)
[2022-10-17] MEDS: NON-FORMULARY MEDICATION (Budesonide-Glycopyr-Formoterol [Breztri Aerosphere] 160-9-4.8 mc INH SCH (10:36)
[2022-10-17] MEDS: MAGNESIUM OXIDE 400 MG TABLET PO SCH (10:37)
[2022-10-17] MEDS: DOBUTamine 500 MG/250 ML PREMIX IV SCH (20:14)
[2022-10-18] MEDS: ALBUTEROL/IPRATROPIUM 3 ML NEB RESP TX SCH ×5 (00:27→18:53)
[2022-10-18 05:22] LABS: Basophils % 0.1 % (0.0-0.8); Eosinophils % 0.1 % (0.00-10.9); Hematocrit 42.4 VOL% (42.0-52.0); Hemoglobin 13.1 GM/DL (14.0-18.0); Immature Granulocytes % 1.2 %; Immature Granulocytes Absolute 0.11 #; Lymphocytes # 0.6 10*3/uL (1.4-4.0); Lymphocytes % 6.4 % (21.2-54.2); Mean Corpuscular HGB Conc 30.9 GM/DL (32-36); Mean Corpuscular Volume 95.3 FL (87-102); Mean Platelet Volume 11.9 FL (9.6-12.0); Monocytes # 0.8 10*3/uL (0.11-0.8); Monocytes % 8.6 % (1.7-12.7); NRBC # 0.03 10*3/uL; Neutrophils % 83.6 % (38.7-73.9); Platelet Count 141 T/CUMM (130-400); Red Blood Count 4.45 MC/CUMM (3.8-5.5); Red Cell Distribution Width 20.7 % (9.3-17.3); White Blood Count 9.56 T/CUMM (4-12)
[2022-10-18 05:46] LABS: Osmolality,Calculated 292.2 MOS/KG (273-304); Potassium 4.6 MMOL/L (3.5-5.1)
[2022-10-18 05:50] LABS: Albumin 3.2 G/DL (3.4-5.0); Calcium 8.8 MG/DL (8.5-10.1); Osmolality,Calculated 287.5 MOS/KG (273-304); Potassium 4.7 MMOL/L (3.5-5.1); Total Protein 6.5 G/DL (6.4-8.2)
[2022-10-18] MEDS ORDERED: SODIUM CHLORIDE 0.9% 1,000 ML IV SCH (06:00)
[2022-10-18] MEDS ORDERED: LIDOCAINE 1% 5 ML VIAL ONE (06:54)
[2022-10-18] MEDS: FLECAINIDE 50 MG TABLET PO SCH ×2 (08:55→21:05)
[2022-10-18] MEDS: ALPRAZolam 0.5 MG TABLET PO SCH ×2 (08:55→21:05)
[2022-10-18] MEDS: glipiZIDE 5 MG TABLET PO SCH ×2 (08:56→21:05)
[2022-10-18] MEDS: PANTOPRAZOLE 40 MG TABLET PO SCH (08:56)
[2022-10-18] MEDS: RIVAROXABAN 20 MG TABLET PO SCH (08:56)
[2022-10-18] MEDS: TERBINAFINE 250 MG TABLET PO SCH (08:56)
[2022-10-18] MEDS: ASPIRIN EC 81 MG TABLET PO SCH (08:57)
[2022-10-18] MEDS: CHOLECALCIFEROL 5,000 UNIT TABLET PO SCH (08:57)
[2022-10-18] MEDS: FERROUS SULFATE 325 MG TABLET PO SCH (08:57)
[2022-10-18] MEDS: predniSONE 20 MG TABLET PO SCH (08:57)
[2022-10-18] MEDS: ASCORBIC ACID 500 MG TABLET PO SCH ×2 (08:57→21:05)
[2022-10-18] MEDS: DAPAGLIFLOZIN 10 MG TABLET PO SCH (08:59)
[2022-10-18] MEDS: MAGNESIUM OXIDE 400 MG TABLET PO SCH (08:59)
[2022-10-18] MEDS: POLYETHYLENE GLYCOL POWDER 17 GM PACK PO SCH (08:59)
[2022-10-18] MEDS: NON-FORMULARY MEDICATION (Budesonide-Glycopyr-Formoterol [Breztri Aerosphere] 160-9-4.8 mc INH SCH (09:00)
[2022-10-18] MEDS: DOBUTamine 500 MG/250 ML PREMIX IV SCH (09:16)
[2022-10-18] MEDS: INSULIN REGULAR 100 UNIT/ML SUBCUT SCH ×4 (09:18→21:53)
[2022-10-18] MEDS ORDERED: propofoL 200 MG/20 ML VIAL IV ONE (11:51)
[2022-10-18] MEDS ORDERED: LIDOCAINE 2% 5 ML VIAL ONE (11:51)
[2022-10-18] MEDS: ONDANSETRON 4 MG/2 ML VIAL IV PRN (18:17)
[2022-10-19] MEDS: ALBUTEROL/IPRATROPIUM 3 ML NEB RESP TX SCH (00:30)
[2022-10-19 01:15] VITALS: BP 100/68
[2022-10-19] MEDS ORDERED: EPINEPHrine 1 MG/ML VIAL ONE (03:17)
== END 2022-10-19 03:32 | disposition expired | DRG 193 ==
LOC: SUATTDRO → N.ED 04:31 → N.EDINP 06:03 → SUATTDRO 06:03 → N.TELEN 17:45
PROVIDERS: ADMIT Internal Medicine; ATTEND Family Medicine